=== PATIENT | male | born 1975 | race Two or more races ===

== ENCOUNTER 2017-01-15 13:26 | Emergency (ER) | payer OTHER ==
[2017-01-15] MEDS ORDERED: Ketorolac INJ* 30 MG/ML 1 ML VIAL IV PUSH ONE (13:51)
[2017-01-15] MEDS ORDERED: Orphenadrine Citrate IV* 30 MG/ML 2 ML VIAL IV ONE (13:51)
[2017-01-15] MEDS ORDERED: Dexamethasone IV* 4 MG/ML 5 ML VIAL (20 MG) IVPB ONE (13:51)
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
[2017-01-15 16:00] VITALS: BP 129/69
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
== END 2017-01-15 16:00 | disposition home or self-care (01) ==
LOC: ED 13:26
DX: M54.5 Low back pain (principal)
CPT/HCPCS: 72100; 96365; 96375; 99282; J1100; J1885; J2360